=== PATIENT | male | born 1960 | race Caucasian/White ===

== ENCOUNTER → 2019-09-26 | Outpatient (CLI) | payer BC ==
--- NOTE | 2019-09-26 10:43 | ECHOF ---
Referral Reason:FATIGUE R53.83 MEASUREMENTS -------- HEIGHT: 185.4 cm WEIGHT: 131.5 kg BP: RVIDd: 2.7 cm (< 3.3) IVSd: 1.4 cm (0.6 - 1.1) LVIDd: 3.6 cm (3.9 - 5.3) LVPWd: 2.0 cm (0.6 - 1.1) IVSs: 2.1 cm LVIDs: 2.1 cm LVPWs: 2.3 cm LAESV Index (A-L): 26.96 ml/m Ao Diam: 3.9 cm (2.0 - 3.7) AV Cusp: 1.6 cm (1.5 - 2.6) LA Diam: 3.7 cm (2.7 - 3.8) MV EXCURSION: 17.514 mm (> 18.000) MV EF SLOPE: 104 mm/s (70 - 150) EPSS: 0.6 cm MV E Benjamin: 0.72 m/s MV DecT: 228 ms MV A Benjamin: 0.54 m/s MV E/A Ratio: 1.34 AV maxP.81 mmHg AV meanP.44 mmHg RAP: 5.00 mmHg RVSP: 16.02 mmHg TAPSE: 27.05 mm FINDINGS -------- Sinus rhythm. The cavity size is decreased. There is moderate concentric left ventricular hypertrophy. Overall left ventricular systolic function is normal with, an EF between 60 - 65 %. The diastolic filling p attern is normal for the age of the patient 9.87. The right ventricle is normal in size. The right ventricular systolic function is normal. The left atrial size is normal. Normal LA size by volume 22+/-6 ml/m2. The right atrial size is normal. Aortic valve is trileaflet and is mildly thickened. There is mild aortic valve sclerosis. Peak/me an gradient across the Aortic Valve is 13.81mmHg / 8.44mmHg. The mitral valve is normal. Mild mitral regurgitation is present. The tricuspid valve appears structurally normal. Mild tricuspid regurgitation present. Right vent ricular systolic pressure is normal at < 35 mmHg. There is no pulmonic regurgitation present. The aortic root size is normal. Normal inferior vena cava with normal inspiratory collapse consistent with estimated right atrial pre ssure of 5 mmHg. There is no pericardial effusion. CONCLUSIONS -------- 1. Sinus rhythm. 2. The cavity size is decreased. 3. There is moderate concentric left ventricular hypertrophy. 4. Overall left ventricular systolic function is normal with, an EF between 60 - 65 %. 5. The diastolic filling pattern is normal for the age of the patient 9.87 6. The right ventricle is normal in size. 7. The right ventricular systolic function is normal. 8. The left atrial size is normal. 9. Normal LA size by volume 22+/-6 ml/m2. 10. The right atrial size is normal. 11. Aortic valve is trileaflet and is mildly thickened. 12. There is mild aortic valve sclerosis. 13. Peak/mean gradient across the Aortic Valve is 13.81mmHg / 8.44mmHg. 14. The mitral valve is normal. 15. Mild mitral regurgitation is present. 16. The tricuspid valve appears structurally normal. 17. Mild tricuspid regurgitation present. 18. Right ventricular systolic pressure is normal at < 35 mmHg. 19. There is no pulmonic regurgitation present. 20. The aortic root size is normal. 21. Normal inferior vena cava with normal inspiratory collapse consistent with estimated right atrial pressure of 5 mmHg. 22. There is no pericardial effusion. FRAME FEEDER: Mounika Garza RDCS
--- NOTE | 2019-09-26 12:00 | EST ---
EXERCISE STRESS DATE OF SERVICE: 09/26/2019 AGE: 59 SEX: Male HT: 75 WT: 290 PROTOCOL: Silvio STAGE: II DURATION OF EXERCISE: 6 minutes HEART RATE REST: 78 BLOOD PRESSURE REST: 160/90 MAXIMUM HEART RATE ACHIEVED: 142 MAXIMUM BLOOD PRESSURE: 247/80 85% MPHR: 137 100% MPHR: 161 METS: 7 INDICATIONS: Fatigue. CLINICAL INFORMATION: Baseline EKG shows sinus rhythm, normal axis, normal intervals. Patient exercised on Silvio protocol for a total of 6 minutes achieving 7 METs, 88% of predicted maximal heart rate without chest pain. At this level of activity, he became extremely short of breath, fatigued and tired and there was [address]-segment depression noted in the inferolateral leads. CONCLUSIONS: 1. Average exercise tolerance. 2. Abnormal stress test by EKG criteria. Because of the abnormal stress test, I advised the patient to quit smoking. Follow up with his primary care physician for further care. I asked him to take an aspirin daily and have optimal control of his blood pressure. MMODL / IJN: [id number] /
== END | disposition home or self-care (01) ==
LOC: RADECHMAIN 08:11
PROVIDERS: ATTEND Family Medicine
DX: I08.1 Rheumatic disorders of both mitral and tricuspid valves (principal); R94.39 Abnormal result of other cardiovascular function study
CPT/HCPCS: 93017; 93306

== ENCOUNTER → 2024-09-19 | Outpatient (CLI) | payer BC ==
--- NOTE | 2024-09-19 12:45 | XR ---
EXAMINATION TYPE: XR lumbosacral spine min 4V DATE OF EXAM: 09/19/2024 11:13 AM COMPARISON: None CLINICAL INDICATION: Male, 64 years old with history of M25.551 M25.552 D54.50 LS SP BACK PAIN BL HIP P; TECHNIQUE: XR lumbosacral spine min 4V - Frontal, lateral , bilateral oblique and coned in L5-S1 late ral views of the spine. FINDINGS: No evidence of any acute osseous pathology. No evidence of loss of vertebral body height i s seen. There is normal alignment of the lumbar vertebral bodies. Scattered disc space narrowing. Mul tilevel marginal osteophyte formation throughout the visualized spine. There is facet joint arthropat hy throughout the spine. Scattered at least mild neural foraminal stenosis. IMPRESSION: 1. No acute fracture. 2. Moderate multilevel disc degeneration. [facility], , 09/19/2024 12:43 PM
--- NOTE | 2024-09-19 12:57 | XR ---
EXAMINATION TYPE: XR Hip Bilateral Complete DATE OF EXAM: 09/19/2024 11:13 AM COMPARISON: None CLINICAL INDICATION: Male, 64 years old with history of M25.551; H TECHNIQUE: XR Hip Bilateral Complete; Frontal and lateral views FINDINGS: No evidence for acute process, joint dislocation or significant soft tissue swelling. Osteo phyte formation of the superior acetabulum of the hip. There is mild joint space narrowing. IMPRESSION: 1. No evidence for acute process. 2. Mild hip osteoarthrosis. [facility], , 09/19/2024 12:54 PM
== END | disposition home or self-care (01) ==
LOC: RADXRMAIN 10:45
PROVIDERS: ATTEND Family Medicine
DX: M16.0 Bilateral primary osteoarthritis of hip (principal); M51.360 Other intervertebral disc degeneration, lumbar region with discogenic back pain only
CPT/HCPCS: 72110; 73521